=== PATIENT | female | born 1990 ===

== ENCOUNTER 2018-07-28 09:48 | Emergency (ER) | payer MEDICAID ==
[2018-07-28 10:45] VITALS: BMI 26.6
[2018-07-28] MEDS ORDERED: Sodium Chloride 0.9% 1,000 ML IV STA (12:30)
--- NOTE | 2018-07-28 12:51 | ED PDOC ---
Syncope/Near Syncope/Dizziness Time Seen by Provider: 07/28/18 12:26 Chief Complaint (Provider): dizziness History Per: Patient History/Exam Limitations: no limitations Onset/Duration Of Symptoms: Persistent Current Symptoms Are (Timing): Still Present Additional Complaint(s): 27 year old female at 38 weeks gestation is referred to ED by OB-ED for an evaluation of dizziness and headache since this morning. Patient states she did not eat yet but denies any abdominal pain, vaginal bleeding, vomiting, or diarrhea. evaluation, otherwise, is normal. 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 Past Medical History Reviewed: Historical Data, Nursing Documentation, Vital Signs - Medical History PMH: No Chronic Diseases - Surgical History Surgical History: Appendectomy, Cholecystectomy - Family History Family History: States: Unknown Family Hx - Immunization History Hx Tetanus Toxoid Vaccination: No Hx Influenza Vaccination: No Hx Pneumococcal Vaccination: No - Home Medications Home Medications: Ambulatory Orders Medication Instructions Recorded Nitrofurantoin Macrocrystals 100 mg PO BID #14 cap 12/30/17 [Macrobid] Ondansetron ODT [Zofran ODT] 4 mg PO TID PRN #12 odt 12/30/17 Sennosides/Docusate Sodium 2 each PO HS #10 tablet 01/06/18 [Senokot-S Tablet] - Allergies Allergies/Adverse Reactions: Allergies Allergy/AdvReac Type Severity Reaction Status Date / Time morphine Allergy Intermediate RASH Verified 06/20/17 10:27 Review of Systems ROS Statement: Except As Marked, All Systems Reviewed And Found Negative Gastrointestinal: Negative for: Vomiting, Abdominal Pain, Diarrhea Genitourinary Female: Negative for: Vaginal Bleeding Neurological: Positive for: Headache, Dizziness Physical Exam - Reviewed Nursing Documentation Reviewed: Yes Vital Signs Reviewed: Yes - Physical Exam Appears: Positive for: Non-toxic, No Acute Distress Head Exam: Positive for: ATRAUMATIC, NORMAL INSPECTION, NORMOCEPHALIC Skin: Positive for: Normal Color Eye Exam: Positive for: Normal appearance ENT: Positive for: Normal ENT Inspection Neck: Positive for: Normal Cardiovascular/Chest: Positive for: Regular Rate, Rhythm, Chest Non Tender Respiratory: Positive for: Normal Breath Sounds. Negative for: Wheezing, Respiratory Distress Gastrointestinal/Abdominal: Positive for: Normal Exam, Soft, Other (gravid). Negative for: Tenderness Neurologic/Psych: Positive for: Alert, Oriented (x3). Negative for: Motor/Sensory Deficits - Laboratory Results Result Diagrams: 07/28/18 12:45 07/28/18 12:45 Medical Decision Making Medical Decision Making: Time: 1245 Initial Plan: * Labs * IV fluids -------- Scribe Attestation: Documented by Lacy Cordoba, acting as a scribe for Ankur Duff MD. Provider Scribe Attestation: All medical record entries made by the Scribe were at my direction and personally dictated by me. I have reviewed the chart and agree that the record accurately reflects my personal performance of the history, physical exam, medical decision making, and the department course for this patient. I have also personally directed, reviewed, and agree with the discharge instructions and disposition. 27 year old female at 38 weeks gestation, referred to ED by [facility], for an evaluation of dizziness and headache since this morning. Patient states she has not eaten food yet but denies any abdominal pain, vaginal bleeding, vomiting, or diarrhea. evaluation, otherwise, is normal. Disposition - Clinical Impression Clinical Impression: Elevated LFTs - Patient ED Disposition Is Patient to be Admitted: No Counseled Patient/Family Regarding: Studies Performed, Diagnosis, Need For Followup - Disposition Referrals: Pernell Maza MD [Primary Care Provider] - Disposition: Routine/Home Disposition Time: 16:00 Condition: FAIR Instructions: Liver Function Test Print Language: SERBIAN
[2018-07-28 13:58] LABS: BASO % 0.1 % (0.0-2.0); EOS # 0.1 K/uL (0.0-0.7); EOS % 0.7 % (0.0-4.0); LYMPH # 1.3 K/uL (1.0-4.3); MEAN CELL VOLUME 86.7 fl (81.0-99.0); MEAN CORPUSCULAR HEMOGLOBIN 30.5 pg (27.0-31.0); MEAN CORPUSCULAR HGB CONC 35.2 g/dL (33.0-37.0); MEAN PLATELET VOLUME 8.8 fl (7.2-11.7); MONO # 0.5 K/uL (0.0-0.8); MONO % 7.2 % (0.0-10.0); NEUT # 5.5 K/uL (1.8-7.0); NRBC % 0.1 % (0.0-0.0); RBC 4.25 Mil/uL (3.80-5.20); RED CELL DISTRIBUTION WIDTH 14.2 % (11.5-14.5); WHITE BLOOD COUNT 7.4 K/uL (4.8-10.8)
[2018-07-28 14:05] LABS: ALBUMIN 3.2 g/dL (3.5-5.0); ALT/SGPT 286 U/L (9-52); AST/SGOT 176 U/L (14-36); BLOOD UREA NITROGEN 7 mg/dl (7-17); CALCIUM 8.7 mg/dL (8.4-10.2); GFR NON-AFRICAN AMERICAN > 60
[2018-07-28 16:01] VITALS: BP 97/54; PULSE 78; RESP 18; TEMP 98.1
--- NOTE | 2018-07-28 16:06 | US ---
Date of service: 07/28/2018 HISTORY: Elevated LFTs COMPARISON: None. TECHNIQUE: Sonographic evaluation of the right upper quadrant of the abdomen. FINDINGS: LIVER: Measures 13.4 cm in length. Normal echogenicity of the liver parenchyma. No mass. No intrahepatic bile duct dilatation. GALLBLADDER: Cholecystectomy COMMON BILE DUCT: Measures 3 mm. No stones. No dilatation. PANCREAS: Unremarkable as visualized. No mass. No ductal dilatation. RIGHT KIDNEY: Measures 11.0 cm in length. Normal echogenicity. No calculus, mass, or hydronephrosis. AORTA: No aneurysmal dilatation. IVC: Unremarkable. OTHER FINDINGS: None . IMPRESSION: Status post cholecystectomy. Otherwise unremarkable examination. No evidence of biliary obstruction.
[2018-07-28 16:09] VITALS: O2SAT 99
--- NOTE | 2018-07-29 08:06 | OBHP ---
Datetime: 07/28/2018 10:42 IP Adm Impression: , intrauterine ; No Active Labor; Intact Membranes IP Chief Complaint Other: Dizziness IP Admit Plan: Observation/Evaluation Admit Comment, IP Provider: 27 yo @ 36.6 based on LMP of 11/12/17 presents with complaint of dizziness. She states the dizziness began this morning at 3 am described as the room is spinning around here and is associated with blurry vision and headache. She states this is the first episode. She tolerate d her breakfast this morning and reports good water intake. Patient reports that she had some bloody vaginal discharge yesterday afternoon. Denies active vaginal bleeding, contractions, decreased movement, vomiting, diarrhea, burnin g on urination, loss of consciousness. OB: patient follows at [facility]/ 07/16/18 demonstrated posterior placenta and Cephali c presentation. Previous resolved in non complicated . No or complications. PMHX: denies Surgical history: Cholecystectomy 2012; Removal of Biliary calculi 2014. No complications. Allergies: Morphine- Rash occurs Social: Denies smoking, alcohol and illict drug use. FHX: Mother with DM type 2. Maternal grandmother with HTN Labs: HIV: Negative HbsAg: Unknown GBS: unknown Rubella: Unknown GC/ CL: Negative RPR: negative ABO: Unknown Antibodies: Unknown PPD: Unknown TDAP: Unknown Physical exam: Patient is resting on the hospital bed, in no acute distress. Heart: S1 and S2 present. No murmurs, gallops or rubs. Lungs: Clear bilateral air entry, no wheezes, rhonchi or rales. Abdomen: Gravid abdomen. Soft, non-tender. Vaginal Exam: Rn Resource Nurse present in room. No lesions visible on inspection. Vaginal exam yielded 1/ 10%/-3 . Bedside ultrasound performed: Cephalic presentation noted. heart monitor: Baseline heart rate 140; Moderate variability; Accelerations present; No dece lerations; No contractions. Category 1 tracing. Assessment: 27 yo @ 36.6 based on LMP of 11/12/17 presents with complaint of dizziness. IUP confirmed on U/S. Plan: - Observe patient - Blood pressure: 94/53 mmhg - continue to monitor vital signs. Patiend reassessed at 11 a.m. - Patient's dizziness has resolved. - Patient is cleared from Labor and deliver as heart tracing has been continiously Category 1 and patient's symptoms have diminised. - Patient cleared from Labor and Delivery to go to [facility] E[facility] for dizziness symptoms. Case discussed with Dr. Magallanes ---Amanda Bell, PGY-1 Family Medicine OB Hospitalist on-call. I saw and examined pt wih PGY1 agree wi ntoe...send to ER for medical ev [place] MAHNDO Pelvic Type - PN: Not Done Extremities - PN: Not Done Abdomen - PN: Normal Back - PN: Not Done Breast - PN: Not Done Lungs - PN: Normal Heart - PN: Normal Thyroid - PN: Not Done Neurologic - PN: Normal HEENT - PN: Normal General - PN: Normal FHR - Baseline A Provider: 140 Membranes, Provider: Intact Contraction Comments Provider: No contractions. Comments, ACOG Physical Exam: Physical exam: Patient is resting on the hospital bed, in no acute dis tress. Heart: S1 and S2 present. No murmurs, gallops or rubs. Lungs: Clear bilateral air entry, no wheezes, rhonchi or rales. Abdomen: Gravid abdomen. Soft, non-tender. Vaginal Exam: Rn Resource Nurse present in room. No lesions visible on inspection. Vaginal exam yielded 1/ 10%/-3 . Bedside ultrasound performed: Cephalic presentation noted. heart monitor: Baseline heart rate 140; Moderate variability; Accelerations present; No dece lerations; No contractions. Category 1 tracing. IP Hx Assessment: The History has been Reviewed and is Current EGA AdmitDate IP: 36.6 Vital Signs Provider: Reviewed IP Chief Complaint: Other NICHD Variability Prov Fetus A: Moderate 6-25bpm NICHD Accel Fetus A IP Provider: [id number] FHR Category Provider Fetus A: Category I NICHD Decel Fetus A IP Provider: None Dilatation, Provider: 1 Effacement, Provider: 10 Station, Provider: -3 Genitourinary Exam: Normal DTRs - PN: Not Done
--- NOTE | 2018-07-29 08:06 | OBDCSUM ---
Datetime: 07/28/2018 11:04 Discharge Comment, Provider: sne to ER Discharge Diagnosis Prov Other: dizziness
== END 2018-07-28 16:05 | disposition home or self-care (01) ==
LOC: H.ER 09:48 → H.L&D 10:22 → H.EROB2 10:22 → H.EROB 12:00 → H.ER 12:00
DX: R78.9 Finding of unspecified substance, not normally found in blood (principal); O26.893 Other specified pregnancy related conditions, third trimester; Z82.49 Family history of ischemic heart disease and other diseases of the circulatory system; Z90.49 Acquired absence of other specified parts of digestive tract; Z3A.36 36 weeks gestation of pregnancy
CPT/HCPCS: 76705; 80053; 85025; 99284; J7030